=== PATIENT | female | born 1945 | race Caucasian/White ===

== ENCOUNTER 2019-04-26 12:02 | Outpatient (CLI) | payer MEDICARE ==
--- NOTE | 2019-04-26 14:01 | MMO ---
Bilateral MAMMO Bilat Screen [facility]. CLINICAL HISTORY: Patient is 74 years old and is seen for screening. The patient has the following family history of breast cancer: sister. VIEWS: The views performed were: bilateral craniocaudal with tomosynthesis and bilateral mediolateral oblique with tomosynthesis. FILMS COMPARED: The present examination has been compared to prior imaging studies performed at [facility] on 10/04/2011 and 12/04/2014, and at [facility] [place] on 10/17/2009. This study has been interpreted with the assistance of computer-aided detection. MAMMOGRAM FINDINGS: There are scattered fibroglandular densities. Benign calcifications are noted bilaterally. Left biopsy clip. There are no suspicious masses, suspicious calcifications, or new areas of architectural distortion. IMPRESSION: THERE IS NO MAMMOGRAPHIC EVIDENCE OF MALIGNANCY. A ROUTINE FOLLOW-UP MAMMOGRAM IN 1 YEAR IS RECOMMENDED. THE RESULTS OF THIS EXAM WERE SENT TO THE PATIENT. ACR BI-RADS Category 2 - Benign finding MAMMOGRAPHY NOTE: 1. A negative mammogram report should not delay a biopsy if a dominant of clinically suspicious mass is present. 2. Approximately 10% to 15% of breast cancers are not detected by mammography. 3. Adenosis and dense breasts may obscure an underlying neoplasm. Reported by: CYDNEY MARTINEZ MD Electonically Signed: [id number]
== END 2019-04-26 12:03 | disposition home or self-care (01) ==
LOC: BICMAMMO 12:02
PROVIDERS: ATTEND Obstetrics & Gynecology
DX: Z12.31 Encounter for screening mammogram for malignant neoplasm of breast (principal); Z80.3 Family history of malignant neoplasm of breast
CPT/HCPCS: 77063; 77067

== ENCOUNTER 2019-06-28 11:16 | Outpatient (CLI) | payer MEDICARE ==
--- NOTE | 2019-06-28 11:30 | RAD ---
XR Chest Pa Lat STANDARD HISTORY: Cough COMPARISON: 10/06/2016 FINDINGS: The heart size is normal. The lungs are well expanded without focal areas of consolidation, pneumothorax or pleural effusions. IMPRESSION: No radiographic evidence of acute cardiopulmonary process.
== END 2019-06-28 11:17 | disposition home or self-care (01) ==
LOC: RAD-FRANK 11:16
PROVIDERS: ATTEND Nurse Practitioner Family
DX: R09.81 Nasal congestion (principal); R05 Cough
CPT/HCPCS: 71046

== ENCOUNTER 2021-03-31 11:35 | Outpatient (CLI) | payer MEDICARE | END 2021-03-31 11:36 | disposition home or self-care (01) | LOC: BICMAMMO 11:35 | PROVIDERS: ATTEND Obstetrics & Gynecology | DX: Z12.31 Encounter for screening mammogram for malignant neoplasm of breast (principal); Z80.3 Family history of malignant neoplasm of breast; Z98.890 Other specified postprocedural states | CPT/HCPCS: 77063; 77067 ==

== ENCOUNTER 2022-06-26 09:48 | Emergency (ER) | payer MEDICARE ==
[2022-06-26 11:06] LABS: ALT (SGPT) 12 U/L (8-55); AST (SGOT) 15 U/L (5-34); Albumin 4.1 g/dL (3.4-4.8); Alkaline Phosphatase 73 U/L (40-110); Anion Gap 13 mmol/L (10-20); BUN (Urea Nitrogen) 20 mg/dL (9.8-20.1); Bilirubin, Total 0.8 mg/dL (0.2-1.2); Calc. Creatinine Clearance 0 mL/min (70-130); Calcium 8.5 mg/dL (7.8-10.44); Carbon Dioxide 27 mmol/L (23-31); Chloride 101 mmol/L (98-107); Estimated GFR 59; Globulin 2.9 g/dL (2.4-3.5); Glucose 103 mg/dL (83-110); Potassium 3.6 mmol/L (3.5-5.1); Sodium 137 mmol/L (136-145)
[2022-06-26 11:40] LABS: Band 4 % (5-11); Hemoglobin 12.5 g/dL (12.0-16.0); Lymphocytes 9 % (21-51); MDiff Complete? YES; Mean Corpuscular HGB CONC 33.3 g/dL (32.0-36.0); Mean Corpuscular Hemoglobin 33.7 pg (27.0-31.0); Mean Platelet Volume 7.5 fL (7.4-10.4); Monocytes 17 % (0-10); Neutrophil 68 % (42-75); Platelet Count 235 10x3/uL (130-400); RBC Distribution Width 12.7 % (11.5-14.5); RBC Morphology Normal; Reactive Lymphocytes 2 % (0-10); Red Blood Cell (RBC) Count 3.71 mill/uL (4.20-5.40)
== END 2022-06-26 12:23 | disposition home or self-care (01) ==
LOC: ERS 09:48
DX: U07.1 COVID-19 (principal); I11.0 Hypertensive heart disease with heart failure; I50.9 Heart failure, unspecified; E78.5 Hyperlipidemia, unspecified; Z79.01 Long term (current) use of anticoagulants; Z79.899 Other long term (current) drug therapy
CPT/HCPCS: 36415; 71045; 80053; 83880; 84484; 85025; 93005